=== PATIENT | female | born 1980 | race Caucasian/White ===

== ENCOUNTER → 2024-09-01 | Outpatient (CLI) | payer OTHER, SELFPAY ==
--- NOTE | 2024-09-01 13:09 | CT_ITS ---
PROCEDURE: SINUS/FACIAL BONE REASON FOR EXAM: CHRONIC SINUSITIS TECHNIQUE: SINUS/FACIAL BONE Coronal and Sagittal reconstruction series were provided. One or more dose reduction techniques were used (e.g., Automated exposure control, adjustment of the mA and/or kV according to patient size, use of iterative reconstruction technique). COMPARISON: None. FINDINGS: Frontal: Unremarkable. Ethmoid: Mild chronic mucosal inflammatory thickening. Sphenoid: Unremarkable. Maxillary: Mild chronic mucosal inflammatory thickening. Turbinates: Mild hypertrophy of the inferior turbinates. Nasal Septum: Mild reverse S shaped nasal septum deviation. Mastoids/Middle Ears: Unremarkable. CT/Sinus/Facial Bone IMPRESSION: Mild chronic mucosal inflammatory changes of the maxillary sinuses and ethmoid air cells. Mild reverse S shaped nasal septum deviation. Mild hypertrophy of the inferior turbinates. Reading Location: [place] [id number]
== END | disposition home or self-care (01) ==
PROVIDERS: PCP Family Medicine; Referring Provider Otolaryngology; Visit Provider Otolaryngology
DX: J32.8 Other chronic sinusitis (principal)
CPT/HCPCS: 70486

== ENCOUNTER → 2025-01-22 | Outpatient (CLI) | payer OTHER, SELFPAY | END | disposition home or self-care (01) | LOC: LABSPEC 15:00 | PROVIDERS: PCP Family Medicine; Referring Provider Otolaryngology; Visit Provider Otolaryngology | DX: J32.8 Other chronic sinusitis (principal) | CPT/HCPCS: 87070; 87077; 87205 ==